=== PATIENT | female | born 1945 | race Caucasian/White ===

== ENCOUNTER 2021-12-23 14:16 | Inpatient (IN) | payer MEDICARE, MEDICAID ==
[2021-12-23 15:41] LABS: #Basophils 0.1 thou/uL (0.0-0.2); #Eosinphils 0.1 thou/uL (0.0-0.7); #Lymphocytes 3.1 thou/uL (1.20-3.40); #Monocytes 0.7 thou/uL (0.11-0.59); #Neutrophils 5.8 thou/uL (1.40-6.50); %Basophils 0.7 % (0.0-1.0); %Eosinophils 0.8 % (0.0-10.0); %Lymphocytes 31.8 % (21.0-51.0); %Monocytes 6.9 % (0.0-10.0); %Neutrophils 59.9 % (42.0-75.0); Hemoglobin 13.4 g/dL (12.0-16.0); Mean Corpuscular HGB CONC 31.7 g/dL (32.0-36.0); Mean Corpuscular Volume 97.6 fL (78.0-98.0); RBC Distribution Width 12.3 % (11.5-14.5); Red Blood Cell (RBC) Count 4.31 mill/uL (4.20-5.40); White Blood Cell (WBC) Count 9.7 thou/uL (4.8-10.8)
[2021-12-23] MEDS ORDERED: Morphine 4 MG/ML VIAL ONE (15:54)
[2021-12-23] MEDS ORDERED: Ondansetron PF 4 MG/2 ML Vial ONE (15:54)
[2021-12-23] MEDS ORDERED: Fentanyl 100 MCG/2 ML VIAL ONE (15:58)
[2021-12-23 16:07] LABS: Albumin 3.3 g/dL (3.4-4.8)
[2021-12-23 16:08] LABS: Chloride 105 mmol/L (98-107)
[2021-12-23 16:09] LABS: Calcium 8.9 mg/dL (7.8-10.44); Potassium 4.8 mmol/L (3.5-5.1); Sodium 135 mmol/L (136-145)
[2021-12-23 16:10] LABS: Globulin 3.3 g/dL (2.4-3.5); Glucose 147 mg/dL (83-110); Protein, Total 6.6 g/dL (5.8-8.1)
[2021-12-23 16:11] LABS: Anion Gap 16 mmol/L (10-20); Carbon Dioxide 19 mmol/L (23-31)
[2021-12-23 16:12] LABS: Alkaline Phosphatase 100 U/L (40-110); Bilirubin, Total 0.5 mg/dL (0.2-1.2)
[2021-12-23 16:13] LABS: Calc. Creatinine Clearance 0 mL/min (70-130)
[2021-12-23 16:14] LABS: BUN (Urea Nitrogen) 16 mg/dL (9.8-20.1); MDiff Complete? YES; Mean Platelet Volume 8.6 fL (7.4-10.4); Platelet Count 55 thou/uL (130-400); Platelet Morphology Comment Appears Decreased; Polychromasia SLIGHT = 2-3 cells (100X) (0-2/hpf)
[2021-12-23 16:15] LABS: AST (SGOT) 45 U/L (5-34)
[2021-12-23 16:16] LABS: ALT (SGPT) 33 U/L (8-55); Lipase 12 U/L (8-78)
[2021-12-23 16:19] LABS: Bilirubin Negative (Negative); Blood, Urine Trace (Negative); Clarity Turbid (Clear); Glucose, Urine (Dipstick) Normal (Negative); Ketone, Urine Negative (Negative); Leukocyte 500 Leu/uL (Negative); Nitrite Negative (Negative); Protein, Urine (Dipstick) Negative (Neg-Trace); Specific Gravity, Urine 1.006 (1.002-1.036); Squamous Epithelial 0-3 HPF (0-3); Urobilinogen Normal mg/dL (Less than 2); WBC/HPF Greater than 50 HPF (0-3); pH, Urine 6.5 (5.0-9.0)
[2021-12-23 16:21] LABS: Bacteria/HPF 1+ HPF (None Seen)
[2021-12-23] MEDS ORDERED: cefTRIAXone\\ROCEPHIN 2 GM VIAL ONE (17:01)
[2021-12-23] MEDS ORDERED: Vancomycin 1 GM/200 ML BAG ONE (17:30)
[2021-12-23] MEDS ORDERED: Ondansetron PF 4 MG/2 ML Vial IVP PRN (17:32)
[2021-12-23 18:21] VITALS: BMI 43.6
[2021-12-23 18:52] LABS: INR-International Normal Ratio 0.9
[2021-12-24] MEDS ORDERED: Vancomycin 1 GM in Premix Bag 1 BAG IVPB SCH (05:00)
[2021-12-24 07:44] LABS: ALT (SGPT) 27 U/L (8-55); AST (SGOT) 20 U/L (5-34); Albumin 3.7 g/dL (3.4-4.8); Alkaline Phosphatase 107 U/L (40-110); Anion Gap 11 mmol/L (10-20); BUN (Urea Nitrogen) 15 mg/dL (9.8-20.1); Bilirubin, Total 0.6 mg/dL (0.2-1.2); Calc. Creatinine Clearance 114 mL/min (70-130); Carbon Dioxide 28 mmol/L (23-31); Chloride 104 mmol/L (98-107); Globulin 2.8 g/dL (2.4-3.5); Glucose 107 mg/dL (83-110); Potassium 4.2 mmol/L (3.5-5.1); Protein, Total 6.5 g/dL (5.8-8.1); Sodium 139 mmol/L (136-145)
[2021-12-24] MEDS: Loperamide HCl 2 MG CAP PO SCH ×2 (08:43→20:37)
[2021-12-24] MEDS: Losartan 25 MG TAB PO SCH (08:43)
[2021-12-24] MEDS ORDERED: Oxybutynin ER 5 MG TAB PO SCH (09:00)
[2021-12-24 09:53] LABS: #Eosinphils 0.1 thou/uL (0.0-0.7); #Lymphocytes 2.6 thou/uL (1.20-3.40); #Monocytes 0.6 thou/uL (0.11-0.59); #Neutrophils 4.5 thou/uL (1.40-6.50); %Basophils 0.5 % (0.0-1.0); %Eosinophils 1.6 % (0.0-10.0); %Lymphocytes 32.8 % (21.0-51.0); %Monocytes 8.2 % (0.0-10.0); Hemoglobin 13.1 g/dL (12.0-16.0); Mean Corpuscular HGB CONC 33.7 g/dL (32.0-36.0); Mean Corpuscular Hemoglobin 31.5 pg (27.0-31.0); Mean Corpuscular Volume 93.5 fL (78.0-98.0); Mean Platelet Volume 7.3 fL (7.4-10.4); Platelet Count 243 thou/uL (130-400); RBC Distribution Width 12.4 % (11.5-14.5); Red Blood Cell (RBC) Count 4.15 mill/uL (4.20-5.40); White Blood Cell (WBC) Count 7.8 thou/uL (4.8-10.8)
[2021-12-24] MEDS: Acetaminophen 325 MG TAB PO PRN ×3 (10:22→21:26)
[2021-12-24] MEDS: Triamterene/Hydrochlorothiazide 37.5 mg/25 mg Tablet PO SCH (12:49)
[2021-12-24] MEDS: cefTRIAXone\\ROCEPHIN 1 GM in Sodium Chloride 0.9% 100 ML IVPB SCH (17:20)
[2021-12-24] MEDS: Cholestyramine/Aspartame 4 gm Packet PO SCH (20:37)
[2021-12-25] MEDS: Levothyroxine Sodium 75 MCG TAB PO SCH (05:23)
[2021-12-25] MEDS: Acetaminophen 325 MG TAB PO PRN (05:23)
[2021-12-25] MEDS: Ondansetron ODT 4 MG TAB PO PRN ×2 (06:39→19:26)
[2021-12-25] MEDS: HYDROcodone/Acetaminophen 5/325 mg Tablet PO PRN ×2 (06:40→19:26)
[2021-12-25 06:49] LABS: Anion Gap 13 mmol/L (10-20); BUN (Urea Nitrogen) 14 mg/dL (9.8-20.1); Calc. Creatinine Clearance 128 mL/min (70-130); Calcium 8.8 mg/dL (7.8-10.44); Carbon Dioxide 25 mmol/L (23-31); Chloride 104 mmol/L (98-107); Glucose 100 mg/dL (83-110); Sodium 138 mmol/L (136-145)
[2021-12-25 06:59] LABS: #Basophils 0.1 thou/uL (0.0-0.2); #Eosinphils 0.2 thou/uL (0.0-0.7); #Monocytes 0.6 thou/uL (0.11-0.59); #Neutrophils 3.4 thou/uL (1.40-6.50); %Eosinophils 2.6 % (0.0-10.0); %Lymphocytes 41.8 % (21.0-51.0); %Monocytes 7.9 % (0.0-10.0); %Neutrophils 46.7 % (42.0-75.0); Hemoglobin 13.4 g/dL (12.0-16.0); Mean Corpuscular HGB CONC 31.5 g/dL (32.0-36.0); Mean Corpuscular Hemoglobin 30.7 pg (27.0-31.0); Mean Corpuscular Volume 97.5 fL (78.0-98.0); Mean Platelet Volume 7.7 fL (7.4-10.4); Platelet Count 240 thou/uL (130-400); RBC Distribution Width 12.3 % (11.5-14.5); Red Blood Cell (RBC) Count 4.37 mill/uL (4.20-5.40); White Blood Cell (WBC) Count 7.3 thou/uL (4.8-10.8)
[2021-12-25] MEDS ORDERED: Lidocaine 5% Patch TD PRN (08:06)
[2021-12-25] MEDS: Triamterene/Hydrochlorothiazide 37.5 mg/25 mg Tablet PO SCH (08:26)
[2021-12-25] MEDS: Loperamide HCl 2 MG CAP PO SCH ×2 (08:27→20:37)
[2021-12-25] MEDS: Losartan 25 MG TAB PO SCH (08:27)
[2021-12-25] MEDS: Oxybutynin ER 5 MG TAB PO SCH (09:53)
[2021-12-25] MEDS: cefTRIAXone\\ROCEPHIN 1 GM in Sodium Chloride 0.9% 100 ML IVPB SCH (17:18)
[2021-12-25] MEDS ORDERED: Transdermal Patch Removal TOP SCH (20:00)
[2021-12-25] MEDS: Cholestyramine/Aspartame 4 gm Packet PO SCH (20:38)
[2021-12-26] MEDS: Levothyroxine Sodium 75 MCG TAB PO SCH (05:38)
[2021-12-26] MEDS: Ondansetron ODT 4 MG TAB PO PRN (06:37)
[2021-12-26] MEDS: HYDROcodone/Acetaminophen 5/325 mg Tablet PO PRN (06:37)
[2021-12-26 08:11] VITALS: BP 165/93; TEMP 97.7
[2021-12-26] MEDS: Triamterene/Hydrochlorothiazide 37.5 mg/25 mg Tablet PO SCH (08:57)
[2021-12-26] MEDS: Oxybutynin ER 5 MG TAB PO SCH (08:58)
[2021-12-26] MEDS: Loperamide HCl 2 MG CAP PO SCH (08:58)
[2021-12-26] MEDS: Losartan 25 MG TAB PO SCH (08:58)
== END 2021-12-26 12:25 | disposition home or self-care (01) | DRG 690 ==
LOC: ERS 14:16 → T4-A 17:04 → OBSVTOIN 12-24 08:35
PROVIDERS: ADMIT Family Medicine; ATTEND Family Medicine
DX: N10 Acute pyelonephritis (principal); M54.50 Low back pain, unspecified; Z20.822 Contact with and (suspected) exposure to COVID-19; I10 Essential (primary) hypertension; Z87.440 Personal history of urinary (tract) infections; Z90.49 Acquired absence of other specified parts of digestive tract; Z90.710 Acquired absence of both cervix and uterus; Z79.899 Other long term (current) drug therapy
CPT/HCPCS: 36415; 74176; 74177; 80048; 80053; 81003; 81015; 83605; 83690; 85025; 85610; 87086; 96365; 96375; G0378; J0696; J2270; J2405; J3010; J3370; J3490; Q0162; U0003; U0005

== ENCOUNTER 2022-02-01 08:09 | Outpatient (CLI) | payer MEDICARE, MEDICAID | END 2022-02-01 08:10 | disposition home or self-care (01) | LOC: BICRAD 08:09 | PROVIDERS: ATTEND Nurse Practitioner Family | DX: U07.1 COVID-19 (principal) | CPT/HCPCS: 71046 ==

== ENCOUNTER 2022-09-18 12:15 | Emergency (ER) | payer MEDICARE, MEDICAID ==
[2022-09-18 12:43] LABS: #Eosinphils 0.1 thou/uL (0.0-0.7); #Lymphocytes 2.4 thou/uL (1.20-3.40); #Monocytes 0.5 thou/uL (0.11-0.59); #Neutrophils 4.2 thou/uL (1.40-6.50); %Basophils 0.6 % (0.0-1.0); %Eosinophils 0.9 % (0.0-10.0); %Monocytes 7.3 % (0.0-10.0); %Neutrophils 58.2 % (42.0-75.0); Mean Corpuscular HGB CONC 32.6 g/dL (32.0-36.0); Mean Platelet Volume 7.9 fL (7.4-10.4); Platelet Count 240 10x3/uL (130-400); RBC Distribution Width 12.4 % (11.5-14.5); Red Blood Cell (RBC) Count 4.54 mill/uL (4.20-5.40); White Blood Cell (WBC) Count 7.3 10x3/uL (4.8-10.8)
[2022-09-18 13:00] LABS: ALT (SGPT) 19 U/L (8-55); AST (SGOT) 17 U/L (5-34); Albumin 3.7 g/dL (3.4-4.8); Alkaline Phosphatase 76 U/L (40-110); Anion Gap 11 mmol/L (10-20); BUN (Urea Nitrogen) 16 mg/dL (9.8-20.1); Bilirubin, Total 0.6 mg/dL (0.2-1.2); Calc. Creatinine Clearance 0 mL/min (70-130); Calcium 8.8 mg/dL (7.8-10.44); Carbon Dioxide 22 mmol/L (23-31); Chloride 109 mmol/L (98-107); Estimated GFR 80; Globulin 2.8 g/dL (2.4-3.5); Glucose 121 mg/dL (83-110); Potassium 3.9 mmol/L (3.5-5.1); Protein, Total 6.5 g/dL (5.8-8.1); Sodium 138 mmol/L (136-145)
[2022-09-18 15:58] LABS: Bilirubin Negative (Negative); Blood, Urine Negative (Negative); Clarity Turbid (Clear); Glucose, Urine (Dipstick) Normal (Negative); Ketone, Urine Negative (Negative); Leukocyte 500 Leu/uL (Negative); Nitrite 2+ (Negative); Protein, Urine (Dipstick) Negative (Neg-Trace); RBC/HPF 0-3 HPF (0-3); Specific Gravity, Urine 1.011 (1.002-1.036); Squamous Epithelial None Seen HPF (0-3); Urobilinogen Normal mg/dL (Less than 2); pH, Urine 5.5 (5.0-9.0)
[2022-09-18 15:59] LABS: Bacteria/HPF 1+ HPF (None Seen)
[2022-09-18 16:00] LABS: WBC/HPF 21-50 HPF (0-3)
[2022-09-18] MEDS ORDERED: cefTRIAXone\\ROCEPHIN 1 GM VIAL ONE (16:41)
[2022-09-18] MEDS ORDERED: Lidocaine 1% PF 5 ML VIAL ONE (16:42)
== END 2022-09-18 16:56 | disposition home or self-care (01) ==
LOC: ERS 12:15
DX: N39.0 Urinary tract infection, site not specified (principal); I10 Essential (primary) hypertension; Z79.899 Other long term (current) drug therapy
CPT/HCPCS: 36415; 80053; 81003; 81015; 85025; 87077; 87086; 87186; 96372; 99283; J0696

== ENCOUNTER 2022-11-01 10:03 | Outpatient (CLI) | payer MEDICARE, MEDICAID | END 2022-11-01 10:04 | disposition home or self-care (01) | LOC: ULT 10:03 | PROVIDERS: ATTEND Nurse Practitioner Family | DX: R32 Unspecified urinary incontinence (principal) | CPT/HCPCS: 76770 ==

== ENCOUNTER 2023-01-10 08:57 | Outpatient (CLI) | payer MEDICARE, MEDICAID | END 2023-01-10 08:58 | disposition home or self-care (01) | LOC: LABBT 08:57 | PROVIDERS: ATTEND Orthopaedic Surgery | DX: Z01.818 Encounter for other preprocedural examination (principal); M17.11 Unilateral primary osteoarthritis, right knee | CPT/HCPCS: 71046 ==

== ENCOUNTER 2023-03-03 18:09 | Inpatient (IN) | payer MEDICARE, MEDICAID ==
[2023-03-03 18:30] LABS: #Basophils 0.1 thou/uL (0.0-0.2); #Eosinphils 0.5 thou/uL (0.0-0.7); #Monocytes 1.1 thou/uL (0.11-0.59); #Neutrophils 7.6 thou/uL (1.40-6.50); %Basophils 0.4 % (0.0-1.0); %Lymphocytes 24.4 % (21.0-51.0); %Monocytes 8.6 % (0.0-10.0); %Neutrophils 62.2 % (42.0-75.0); Hematocrit 38.6 % (36.0-47.0); Hemoglobin 12.6 g/dL (12.0-16.0); Mean Corpuscular HGB CONC 32.6 g/dL (32.0-36.0); Mean Corpuscular Hemoglobin 29.2 pg (27.0-31.0); Mean Corpuscular Volume 89.6 fl (78.0-98.0); Mean Platelet Volume 9.3 fL (7.4-10.4); Platelet Count 318 10x3/uL (130-400); RBC Distribution Width 14.5 % (11.5-14.5); Red Blood Cell (RBC) Count 4.31 mill/uL (4.20-5.40); White Blood Cell (WBC) Count 12.2 10x3/uL (4.8-10.8)
[2023-03-03 18:57] LABS: ALT (SGPT) 31 U/L (8-55); AST (SGOT) 26 U/L (5-34); Albumin 3.7 g/dL (3.4-4.8); Alkaline Phosphatase 148 U/L (40-110); Anion Gap 16 mmol/L (10-20); BUN (Urea Nitrogen) 10 mg/dL (9.8-20.1); Bilirubin, Total 0.8 mg/dL (0.2-1.2); Calc. Creatinine Clearance 0 mL/min (70-130); Calcium 9.1 mg/dL (7.8-10.44); Carbon Dioxide 21 mmol/L (23-31); Chloride 105 mmol/L (98-107); Estimated GFR 82; Globulin 2.6 g/dL (2.4-3.5); Glucose 127 mg/dL (83-110); Potassium 4.1 mmol/L (3.5-5.1); Protein, Total 6.3 g/dL (5.8-8.1); Sodium 138 mmol/L (136-145)
[2023-03-03 19:00] LABS: Troponin I 0.011 ng/mL (< 0.028)
[2023-03-03] MEDS ORDERED: HYDROcodone/Acetaminophen 10/325 mg Tablet ONE (19:50)
[2023-03-03] MEDS ORDERED: Ondansetron ODT 4 MG TAB PO PRN (20:21)
[2023-03-03] MEDS ORDERED: Ondansetron PF 4 MG/2 ML Vial IVP PRN (20:21)
[2023-03-03] MEDS ORDERED: Acetaminophen 650 MG Suppository PR PRN (20:21)
[2023-03-03] MEDS ORDERED: hydrALAZINE 25 MG TAB ONE (20:56)
[2023-03-03 21:31] LABS: Magnesium 2.1 mg/dL (1.6-2.6)
[2023-03-03 22:11] VITALS: BMI 42.7
[2023-03-03] MEDS: hydrALAZINE 25 MG TAB PO SCH (22:16)
[2023-03-03] MEDS ORDERED: Cholestyramine/Aspartame 4 gm Packet PO SCH ×3 (22:48→23:00)
[2023-03-03] MEDS ORDERED: Cefdinir 300 MG CAP PO SCH (23:00)
[2023-03-03] MEDS: HYDROcodone/Acetaminophen 10/325 mg Tablet PO PRN (23:17)
[2023-03-04 04:54] LABS: #Basophils 0.1 thou/uL (0.0-0.2); #Eosinphils 0.5 thou/uL (0.0-0.7); #Neutrophils 5.6 thou/uL (1.40-6.50); %Basophils 0.5 % (0.0-1.0); %Eosinophils 4.6 % (0.0-10.0); %Lymphocytes 29.6 % (21.0-51.0); %Monocytes 9.6 % (0.0-10.0); %Neutrophils 55.3 % (42.0-75.0); Hematocrit 36.3 % (36.0-47.0); Hemoglobin 11.8 g/dL (12.0-16.0); Mean Corpuscular HGB CONC 32.5 g/dL (32.0-36.0); Mean Corpuscular Hemoglobin 29.1 pg (27.0-31.0); Mean Corpuscular Volume 89.6 fl (78.0-98.0); Mean Platelet Volume 10.2 fL (7.4-10.4); Platelet Count 329 10x3/uL (130-400); RBC Distribution Width 14.6 % (11.5-14.5); Red Blood Cell (RBC) Count 4.05 mill/uL (4.20-5.40); White Blood Cell (WBC) Count 10.1 10x3/uL (4.8-10.8)
[2023-03-04] MEDS: Levothyroxine Sodium 75 MCG TAB PO SCH (05:33)
[2023-03-04] MEDS: HYDROcodone/Acetaminophen 10/325 mg Tablet PO PRN ×4 (07:03→20:45)
[2023-03-04 07:36] LABS: Anion Gap 12 mmol/L (10-20); BUN (Urea Nitrogen) 12 mg/dL (9.8-20.1); Calc. Creatinine Clearance 107 mL/min (70-130); Calcium 9.3 mg/dL (7.8-10.44); Carbon Dioxide 23 mmol/L (23-31); Chloride 105 mmol/L (98-107); Estimated GFR 76; Glucose 126 mg/dL (83-110); Potassium 4.1 mmol/L (3.5-5.1); Sodium 136 mmol/L (136-145)
[2023-03-04] MEDS: Cefdinir 300 MG CAP PO SCH ×2 (08:32→20:45)
[2023-03-04] MEDS: Cholestyramine/Aspartame 4 gm Packet PO SCH ×2 (09:51→20:46)
[2023-03-04] MEDS: Losartan 25 MG TAB PO SCH (11:04)
[2023-03-04] MEDS: hydrALAZINE 25 MG TAB PO SCH ×2 (11:04→20:45)
[2023-03-04] MEDS ORDERED: Lidocaine 4% Cream 5 GM TUBE w/ Tegaderm TOP SCH (14:15)
[2023-03-05] MEDS: Levothyroxine Sodium 75 MCG TAB PO SCH (05:02)
[2023-03-05] MEDS ORDERED: Gentamicin 80 MG/2 ML VIAL ONE (06:23)
[2023-03-05] MEDS ORDERED: CEFAZOLIN 1 GM VIAL ONE ×3 (06:23→06:31)
[2023-03-05] MEDS ORDERED: Lidocaine 1% (PF) 30 ML VIAL ONE (06:23)
[2023-03-05] MEDS: Cholestyramine/Aspartame 4 gm Packet PO SCH ×3 (09:38→23:46)
[2023-03-05] MEDS: Cefdinir 300 MG CAP PO SCH ×2 (09:40→20:58)
[2023-03-05] MEDS: HYDROcodone/Acetaminophen 10/325 mg Tablet PO PRN ×4 (09:40→22:42)
[2023-03-05] MEDS: Losartan 25 MG TAB PO SCH (10:34)
[2023-03-05] MEDS: hydrALAZINE 25 MG TAB PO SCH ×2 (10:36→20:58)
[2023-03-06] MEDS ORDERED: hydrALAZINE 25 MG TAB PO SCH (05:00)
[2023-03-06] MEDS: HYDROcodone/Acetaminophen 10/325 mg Tablet PO PRN ×2 (05:10→20:40)
[2023-03-06] MEDS: Levothyroxine Sodium 75 MCG TAB PO SCH (05:10)
[2023-03-06] MEDS ORDERED: Lidocaine 1% (PF) 30 ML VIAL ONE ×2 (06:17→07:17)
[2023-03-06] MEDS ORDERED: CEFAZOLIN 1 GM VIAL ONE (06:17)
[2023-03-06] MEDS ORDERED: Gentamicin 80 MG/2 ML VIAL ONE (06:43)
[2023-03-06] MEDS ORDERED: Midazolam HCl 2 mg/2 ml Vial ONE ×2 (06:44→07:52)
[2023-03-06] MEDS ORDERED: fentaNYL 50 mcg/mL 1 mL Vial ONE (06:44)
[2023-03-06] MEDS ORDERED: hydrALAZINE 20 MG/ML VIAL ONE ×2 (08:02→08:29)
[2023-03-06] MEDS ORDERED: Iopamidol 370 76% 100 ML VIAL ONE (08:56)
[2023-03-06] MEDS: hydrALAZINE 25 MG TAB PO SCH ×2 (10:06→20:41)
[2023-03-06] MEDS: Cefdinir 300 MG CAP PO SCH ×2 (10:07→20:40)
[2023-03-06] MEDS: Losartan 25 MG TAB PO SCH (10:07)
[2023-03-06] MEDS: Cholestyramine/Aspartame 4 gm Packet PO SCH ×3 (10:16→20:44)
[2023-03-06] MEDS: Acetaminophen 325 MG TAB PO PRN (12:05)
[2023-03-07] MEDS: Acetaminophen 325 MG TAB PO PRN ×2 (01:38→23:24)
[2023-03-07] MEDS: Levothyroxine Sodium 75 MCG TAB PO SCH (06:41)
[2023-03-07] MEDS: Losartan 25 MG TAB PO SCH (08:12)
[2023-03-07] MEDS: hydrALAZINE 25 MG TAB PO SCH ×2 (08:12→20:53)
[2023-03-07] MEDS: HYDROcodone/Acetaminophen 10/325 mg Tablet PO PRN ×3 (08:12→18:11)
[2023-03-07] MEDS: Cefdinir 300 MG CAP PO SCH ×2 (08:12→20:53)
[2023-03-07] MEDS: Cholestyramine/Aspartame 4 gm Packet PO SCH ×2 (08:14→20:53)
[2023-03-08] MEDS: Levothyroxine Sodium 75 MCG TAB PO SCH (06:29)
[2023-03-08] MEDS: hydrALAZINE 25 MG TAB PO SCH ×2 (08:33→21:07)
[2023-03-08] MEDS: Cefdinir 300 MG CAP PO SCH ×2 (08:33→21:10)
[2023-03-08] MEDS: Losartan 25 MG TAB PO SCH (08:33)
[2023-03-08] MEDS: Acetaminophen 325 MG TAB PO PRN (08:37)
[2023-03-08] MEDS: Cholestyramine/Aspartame 4 gm Packet PO SCH ×2 (08:37→21:10)
[2023-03-08] MEDS ORDERED: Ipratropium/Albuterol 3 ML NEB NEB PRN (11:25)
[2023-03-08] MEDS ORDERED: Albuterol 200 PUFF (6.7GM INHALER) INH PRN (11:25)
[2023-03-08] MEDS: HYDROcodone/Acetaminophen 10/325 mg Tablet PO PRN (14:59)
[2023-03-09] MEDS: HYDROcodone/Acetaminophen 10/325 mg Tablet PO PRN ×2 (00:17→10:21)
[2023-03-09] MEDS: Levothyroxine Sodium 75 MCG TAB PO SCH (05:44)
[2023-03-09 08:07] VITALS: TEMP 97.5
[2023-03-09] MEDS: Cholestyramine/Aspartame 4 gm Packet PO SCH (10:21)
[2023-03-09] MEDS: Losartan 25 MG TAB PO SCH (10:21)
[2023-03-09] MEDS: Cefdinir 300 MG CAP PO SCH (10:22)
[2023-03-09] MEDS: hydrALAZINE 25 MG TAB PO SCH (10:23)
[2023-03-09 12:21] VITALS: BP 148/72
== END 2023-03-09 15:30 | DRG 243 ==
LOC: ERS 18:09 → 2SE 20:04
PROVIDERS: ADMIT Student in an Organized Health Care Education/Training Program; ATTEND Internal Medicine
PROC: 0JH606Z Insertion of Pacemaker, Dual Chamber into Chest Subcutaneous Tissue and Fascia, Open Approach (ICD-10-PCS; principal; 2023-03-06)
PROC: 02H63JZ Insertion of Pacemaker Lead into Right Atrium, Percutaneous Approach (ICD-10-PCS; 2023-03-06)
PROC: 02HK3JZ Insertion of Pacemaker Lead into Right Ventricle, Percutaneous Approach (ICD-10-PCS; 2023-03-06)
DX: I44.39 Other atrioventricular block (principal); N39.0 Urinary tract infection, site not specified; Z68.41 Body mass index [BMI] 40.0-44.9, adult; D72.829 Elevated white blood cell count, unspecified; I10 Essential (primary) hypertension; E66.01 Morbid (severe) obesity due to excess calories; R07.9 Chest pain, unspecified; Z96.651 Presence of right artificial knee joint; Z88.6 Allergy status to analgesic agent; Z79.890 Hormone replacement therapy; Z79.899 Other long term (current) drug therapy; Z90.710 Acquired absence of both cervix and uterus; Z98.51 Tubal ligation status
CPT/HCPCS: 33208; 33249; 36415; 71045; 80048; 80053; 83735; 84484; 85025; 93005; 93010; 93306; 93798; 97139; 99152; 99153; C1785; C1898; J0360; J0690; J1580; J1650; J2001; J2250; J3010; Q9967